=== PATIENT | female | born 1940 | race Caucasian/White ===

== ENCOUNTER 2019-02-08 09:46 | Inpatient (IN) ==
[2019-02-08] MEDS ORDERED: ASPIRIN PO ONE (10:06)
[2019-02-08 10:40] LABS: BASO# 0.03 X1000 (0.0-0.2); BASO% 0.5 % (0.0-0.8); EOS# 0.03 X1000 (0.0-0.7); EOS% 0.5 % (0.0-10.0); HEMATOCRIT 39.9 % (37.0-47.0); HEMOGLOBIN 12.9 g/dL (12.0-16.0); LYMPH# 0.77 X1000 (1.2-3.4); LYMPH% 12.1 % (20.5-51.1); MCH 27.7 PG (27-31); MCHC 32.3 g/dL (33-37); MCV 85.8 FL (81-99); MONO# 0.37 X1000 (0.11-0.59); MONO% 5.8 % (1.7-9.3); MPV 11.2 FL (7.4-10.4); NEUT# 5.19 X1000 (1.4-6.5); NEUT% 81.1 % (42.2-75.2); PLT 182 X1000 (130-400); RBC 4.65 XMIL (4.2-5.4); RDW 13.5 % (11.5-14.5); WBC 6.39 X1000 (4.8-10.8)
[2019-02-08 10:44] LABS: INR 1.02; PROTIME 13.5 Seconds (11.0-16.0)
[2019-02-08 10:45] LABS: PTT 26.2 Seconds (22.3-41.8)
--- NOTE | 2019-02-08 10:46 | Diag Imaging Result Doc PS360 ---
EXAM: CT HEAD W/O CONTRAST HISTORY: stroke like symptoms TECHNIQUE: CT head without contrast COMPARISON: None. FINDINGS: No parenchymal hemorrhage. No epidural or subdural hematoma. No subarachnoid hemorrhage. There is mild atrophy with mild chronic microvascular ischemic changes. No mass identified on this noncontrasted exam. No hydrocephalus. No sinus opacification. IMPRESSION: 1.No hemorrhage 2.Mild atrophy with mild chronic ischemic changes This exam was performed using automated exposure control, adjustment of mA or kV according to patient size, and/or use of iterative reconstruction technique. Electronically signed by Venancio Gilbert 02/08/2019 10:43 AM
--- NOTE | 2019-02-08 10:46 | Diag Imaging Result Doc PS360 ---
EXAM: CHEST-PORTABLE HISTORY: stroke like symptoms TECHNIQUE: Chest single view COMPARISON: 12/31/2018 FINDINGS: The lungs are well expanded. The heart is mildly prominent. The vessels are not distended. There are no infiltrates. No effusion identified. IMPRESSION: Mild cardiomegaly. Electronically signed by Venancio Gilbert 02/08/2019 10:44 AM
[2019-02-08 11:01] LABS: AGAP 11; ALB/GLOB RATIO 1.6; ALBUMIN 4.1 g/dL (3.5-5.0); ALKALINE PHOSPHATASE 115 U/L (32-104); BUN 17 mg/dL (8-22); CALCIUM 10.1 mg/dL (8.8-10.2); CHLORIDE 110 mmol/L (98-107); COSMO 289; CREATININE 0.6 mg/dL (0.5-0.9); ESTIMATED GFR > 60; GLUCOSE 141 mg/dL (70-104); GOT 17 U/L (10-30); GPT 11 U/L (10-36); POTASSIUM 4.4 mmol/L (3.5-5.1); SODIUM 143 mmol/L (136-145); TCO2 22 mmol/L (25-35); TOTAL BILIRUBIN 0.38 mg/dL (0.20-1.00); TOTAL PROTEIN 6.6 g/dL (6.3-8.3)
[2019-02-08] MEDS: NS 1,000 ML IV PRN (12:01)
[2019-02-08 12:22] LABS: URINE SOURCE CATH
[2019-02-08 12:26] LABS: BILIRUBIN URINE NEGATIVE (NEGATIVE); BLOOD URINE NEGATIVE (NEGATIVE); COLOR YELLOW; GLUCOSE URINE NEGATIVE (NEGATIVE); KETONE URINE NEGATIVE (NEGATIVE); LEUKOCYTES URINE SMALL (NEGATIVE); NITRITE URINE POSITIVE (NEGATIVE); PROTEIN URINE TRACE mg/dL (NEGATIVE); SP GRAVITY URINE 1.022; TURBIDITY URINE HAZY (CLEAR); UROBILINOGEN URINE NORMAL (NORMAL)
[2019-02-08 12:27] LABS: UR EPITHELIAL CELLS <10 /HPF (<10); URINE BACTERIA 4+ /HPF; URINE RBC <10 /HPF (<10)
[2019-02-08] MEDS ORDERED: ROCEPHIN 1 GM in NS 50 ML IV ONE (12:39)
--- NOTE | 2019-02-08 12:45 | PROVIDER DOCUMENTATION ---
This chart was entered by Carlota Pope Scribe, acting as scribe for Malcolm Yanez MD. HPI-Neurological Disorder - General Chief Complaint: Stroke-Like Symptoms Stated Complaint: STROKE LIKE SYMPTOMS Time Seen by Provider: 02/08/19 09:48 Source: patient, family () Allergies/Adverse Reactions: Patient Allergies Allergy/AdvReac Type Severity Reaction Status Date / Time No Known Allergies Allergy Verified 02/08/19 10:35 Home Medications: Home Medication List Medication Instructions Recorded Confirmed Last Taken Type Amlodipine Besylate/Benazepril 1 each PO DAILY 03/19/16 02/08/19 02/07/19 History [Amlodipine-Benazepril 5-40 mg] Levothyroxine Sodium [Synthroid] 175 mcg PO DAILY 03/19/16 02/08/19 02/07/19 History Sertraline [Zoloft] 50 mg PO DAILY 03/19/16 02/08/19 02/07/19 History Hydrocodone/Acetaminophen [[place] 1 each PO Q4-6H PRN PRN #20 tablet 01/27/17 02/08/19 02/08/19 Rx 10-325 Tablet] Aspirin 1 tab PO DAILY 02/08/19 02/08/19 02/07/19 History - History of Present Illness-Neuro Nature of Presenting Problem: 78 yowf presents t the ed with c/o right sided weakness with facial droop noted this morning at 0330am. pt sts when she went to bed last night around 2200 she was at her normal baseline and woke at 0330am to go to the restroom she noted weakness and dragging of her rt leg and foot. pt sts was able to get to the restroom by holding on to lobato and once she returned to the bedroom she could not get back in the bed so she laid on the floor to sleep till morning when her helped her up. pt called her son 1 hour before coming to ed and hold him her sx and he told her to come to ed due to sx and her speech not being normal. pt on exam shows some weakness but is happy and laughing with staff. pt is in no obvious distress and denies MTZ or pain at this time. Headache Location: denies: other (pt has no headache) Severity: reports: moderate Onset/Duration: reports: unsure (between 2200-0330am) Timing: reports: still present, constant Context: reports: impaired speech, paresthesia, facial droop Character of Altered Mental Status: reports: unchanged from baseline Any recent trauma/injury?: reports: none Character of Deficits: reports: new weakness, altered sensation, impaired speech , decreased ability to walk New weakness or altered sensation location:: reports: RUE, RLE Cognitive Baseline: alert, oriented x3 Gait Baseline: walks without assistance Associated Symptoms: reports: decreased ability to walk or stand, paresthesia, sleepy, slurred speech, weakness, other (ataxia). denies: headache, dizziness, confusion, chest pain, neck/back pain, fever/chills, loss of consciousness Similar Symptoms Previously?: No Recently seen or treated by another doctor?: No Review of Systems - Adult - REVIEW OF SYSTEMS - ADULT Constitutional: denies: chills, fever Eyes: reports: no symptoms reported Ears, Nose, Mouth & Throat: reports: no symptoms reported Cardiovascular: denies: chest pain, palpitations Respiratory: denies: cough, shortness of breath, wheezing Gastrointestinal: denies: diarrhea, nausea, vomiting Genitourinary: reports: no symptoms reported Musculoskeletal: denies: back pain, neck pain Integumentary: reports: no symptoms reported Neurological: reports: see HPI, ataxia, paresthesia, slurred speech. denies: dizziness/vertigo, headache/migraines, seizure, syncope, tremors Psychiatric: reports: no symptoms reported Endocrine: reports: no symptoms reported Hematologic/Lymphatic: reports: no symptoms reported Allergic/Immunologic: reports: no symptoms reported All Other Systems: Reviewed and Negative Past History - Adult - PAST MEDICAL HISTORY-ADULT Review of Records: reports: Old Records Reviewed, Nursing Assessment Review, Medications Reviewed, Social history reviewed & non-contributory. Major Childhood Illnesses: reports: denies history Cardiovascular: reports: HTN Respiratory: reports: denies history Gastrointestinal: reports: GERD Obstetrical/Gynecological: reports: denies history Genitourinary: reports: denies history Musculoskeletal: reports: denies history Neurological: reports: denies history Endocrine/Immune: reports: Diabetes, thyroid disorder Diabetes Type: Type 2 Other Conditions: reports: other cancer (skin) - PRIOR SURGERIES/PROCEDURES Surgical/Procedure History: reports: cholecystectomy, hysterectomy, joint replacement, other (aortic aneurysm repair) - IMMUNIZATION STATUS Childhood Immunizations: See Nurse Assessment Flu Vaccine: See Nurse Assessment - FAMILY HISTORY Family History: reviewed, not pertinent - SOCIAL HISTORY Smoking: quit greater than 1 year Substance Use: denies Alcohol Use Frequency: never Living Situation: family Physical Exam- Neurological - Physical Exam-Neuro Initial Vital Signs Reviewed: Yes General Appearance: alert, no apparent distress, obese Eye Exam: bilateral eye: normal inspection, PERRL HENMT: moist mucous membranes, other (flating of nasal grove rt side/no teeth) Head Injury: no evidence of injury Neck: full range of motion, carotid bruit (grade 3 rt side) Respiratory: chest non-tender, lungs clear, normal breath sounds Cardiovascular: normal peripheral pulses, regular rate, rhythm Abdominal Exam: normal bowel sounds, non tender, soft Lymphatic: no adenopathy Extremity: other (pt has dried feces on lower bilateral legs/weakness 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 II-XII, facial droop, motor weakness, sensory deficit Integumentary: normal color, normal turgor, warm/dry Psych/Mental Status: normal mood/affect, normal thought content, normal thought process, oriented x 3 - Glascow Coma Scale Best Eye Response: (4) open spontaneously Best Verbal Response: (5) oriented Best Motor Response: (6) obeys commands Total Glascow Score: 15 Progress - PLAN OF CARE/RESULTS Progress/Plan/Lab Results: Vital Signs - 8 hr 02/08/19 09:48 Temperature 98.3 F Pulse Rate 71 Respiratory Rate 18 Blood Pressure 181/73 O2 Sat by Pulse Oximetry 96 Laboratory Results - last 24 hr 02/08/19 02/08/19 02/08/19 10:16 10:16 10:16 WBC 6.39 RBC 4.65 Hgb 12.9 Hct 39.9 MCV 85.8 MCH 27.7 MCHC 32.3 L RDW Std Deviation 13.5 Plt Count 182 MPV 11.2 H Immature Gran % (Auto) 0.0 Neut % (Auto) 81.1 H Lymph % (Auto) 12.1 L [place] % (Auto) 5.8 Eos % (Auto) 0.5 Baso % (Auto) 0.5 Immature Gran # (Auto) 0.00 Neut # (Auto) 5.19 Lymph # (Auto) 0.77 L [place] # (Auto) 0.37 Eos # (Auto) 0.03 Baso # (Auto) 0.03 PT 13.5 INR 1.02 PTT (Actin FS) 26.2 Sodium 143 Potassium 4.4 Chloride 110 H Carbon Dioxide 22 L Anion Gap 11 BUN 17 Creatinine 0.6 Estimated GFR/1.73 m2 > 60 BUN/Creatinine Ratio 28 Glucose 141 H POC Glucose Calculated Osmolality 289 Calcium 10.1 Total Bilirubin 0.38 AST 17 ALT 11 Alkaline Phosphatase 115 H Troponin T Total Protein 6.6 Albumin 4.1 Globulin 2.5 Albumin/Globulin Ratio 1.6 Urine Source Urine Color Urine Turbidity Urine pH Ur Specific [place] Urine Protein Ur Glucose (Stick) Ur Ketones (Stick) Urine Blood Urine Nitrite Urine Bilirubin Urobilinogen Dipstick Urine Leukocytes Urine WBC (Auto) Urine RBC (Auto) U Epithel Cells (Auto) Urine Bacteria (Auto) 02/08/19 02/08/19 02/08/19 10:16 10:17 12:15 WBC RBC Hgb Hct MCV MCH MCHC RDW Std Deviation Plt Count MPV Immature Gran % (Auto) Neut % (Auto) Lymph % (Auto) [place] % (Auto) Eos % (Auto) Baso % (Auto) Immature Gran # (Auto) Neut # (Auto) Lymph # (Auto) [place] # (Auto) Eos # (Auto) Baso # (Auto) PT INR PTT (Actin FS) Sodium Potassium Chloride Carbon Dioxide Anion Gap BUN Creatinine Estimated GFR/1.73 m2 BUN/Creatinine Ratio Glucose POC Glucose 145 H Calculated Osmolality Calcium Total Bilirubin AST ALT Alkaline Phosphatase Troponin T < 0.010 Total Protein Albumin Globulin Albumin/Globulin Ratio Urine Source CATH Urine Color YELLOW Urine Turbidity HAZY Urine pH 6.0 Ur Specific [place] 1.022 Urine Protein TRACE A Ur Glucose (Stick) NEGATIVE Ur Ketones (Stick) NEGATIVE Urine Blood NEGATIVE Urine Nitrite POSITIVE A Urine Bilirubin NEGATIVE Urobilinogen Dipstick NORMAL Urine Leukocytes SMALL A Urine WBC (Auto) 10-20 A Urine RBC (Auto) <10 U Epithel Cells (Auto) <10 Urine Bacteria (Auto) 4+ Orders Category Date Time Status Cardiac Monitoring DIRECTED Care 02/08/19 10:05 Active Finger Stick Blood Sugar (ED) DIRECTED Care 02/08/19 10:05 Completed Misc. NRSG Communication Order DIRECTED Care 02/08/19 10:05 Active Saline Loc NOW Care 02/08/19 10:05 Active CHEST-PORTABLE [RAD] Stat Exams 02/08/19 10:[address] HEAD W/O CONTRAST [CT] Stat Exams 02/08/19 10:05 Completed CBC WITH ELECTRONIC DIFF [HEME] Stat Lab 02/08/19 10:16 Completed COMPREHENSIVE METABOLIC PANEL [CHEM] Stat Lab 02/08/19 10:16 Completed PROTIME WITH INR [COAG] Stat Lab 02/08/19 10:16 Completed PTT [COAG] Stat Lab 02/08/19 10:16 Completed TROPONIN T Stat Lab 02/08/19 10:16 Completed URINALYSIS W/POSS RFLX CULT [URINALYSIS] Stat Lab 02/08/19 12:15 Completed URINE CULTURE [RM] Routine Lab 02/08/19 12:34 Received URINE DRUG SCREEN Stat Lab 02/08/19 12:15 Received 0.9% Sodium Chloride Inj [Ns] 1,000 ml Med 02/08/19 10:05 Active IV 100 mls/hr Aspirin Med 02/08/19 10:06 Discontinued 325 mg PO NOW ONE EKG [EKG] Stat Ther 02/08/19 10:05 Ordered Transfer/Admit Order [TRANSFER] Routine Transfer 02/08/19 12:32 Ordered Result Diagrams: 02/08/19 10:16 02/08/19 10:16 - REASSESSMENT Reassessment #1 Time Reassessed: 11:01 Status: unchanged - EKG 1 Time of EKG reading by physician:: 10:03 EKG Read and Signed by:: Malcolm Yanez EKG Interpretation (*Must complete 3 of following elements*): Normal Rate: 68 Rhythm: nsr [place]: normal QRS: normal DC Interval: normal ST Wave: normal - XRAY 1 XRAY: Bilateral XRAY Study: Chest Impression: See EMR Report (EXAM: CHEST-PORTABLE HISTORY: stroke like symptoms TECHNIQUE: Chest single view COMPARISON: 12/31/2018 FINDINGS: The lungs are well expanded. The heart is mildly prominent. The vessels are not distended. There are no infiltrates. No effusion identified. IMPRESSION: Mild cardiomegaly. Electronically signed by Venancio Gilbert 02/08/2019 10:44 AM 02/08/19 1044 Interpreting Physician: Venancio Gilbert MD Dictated Date/Time: 02/08/19 1044 cc: Malcolm Yanez MD; Bhavik Guan MD) - CT/MRI 1 CT Study: Head Impression: See EMR Report (EXAM: CT HEAD W/O CONTRAST HISTORY: stroke like symptoms TECHNIQUE: CT head without contrast COMPARISON: None. FINDINGS: No parenchymal hemorrhage. No epidural or subdural hematoma. No subarachnoid hemorrhage. There is mild atrophy with mild chronic microvascular ischemic changes. No mass identified on this noncontrasted exam. No hydrocephalus. No sinus opacification. IMPRESSION: 1.No hemorrhage 2.Mild atrophy with mild chronic ischemic changes This exam was performed using automated exposure control, adjustment of mA or kV according to patient size, and/or use of iterative reconstruction technique. Electronically signed by Venancio Gilbert 01/12 10:43 AM 02/08/19 1043 Interpreting Physician: Venancio Gilbert MD Dictated Date/Time: 02/08/19 1042 cc: Malcolm Yanez MD; Bhavik Guan MD) - CONSULTS/PCP/HOSPITALIST Notification #1 *Consult/PCP/Hospitalist*: hospitalist dr ricks Time Discussed: 12:26 Consult Disposition: Admit Departure - Departure Date of Disposition Decision: 02/08/19 Time of Disposition Decision: 10:00 DIAGNOSIS: UTI (urinary tract infection) CVA (cerebral vascular accident) Qualifiers: CVA mechanism: unspecified Qualified Code(s): I63.9 - Cerebral infarction, unspecified Disposition: ADMITTED INPATIENT Certified Medical Emergency: Emergent Condition: Good Referrals and Follow-Ups: Bhavik Guan MD [Primary Care Provider] - - Critical Care Note This patient required my direct & personal management of CC.: Yes Total Time (mins): 38 Critical Care Statement: This patient required my direct personal management to treat or rule out processes, the absence of which, could potentiallly result in sudden, clinically significant life or limb threatening deterioration. Attestation - Physician/ TITUS Attestation Patient care was provided by Advanced Practice Provider:: No The physician spent face to face time with patient:: Yes Advanced Practice Provider documentation review:: Supervising physician onsite and consulted in the evaluation and care of this patient. The physician did have a face to face encounter with the patient. - NIH Stroke Scale Level of Consciousness: 0-Alert LOC Questions (ask month and age): 0-Answers Both Correctly LOC Commands (ask to open & close eyes;make a fist, let go): 0-Obeys Both Correctly Best Gaze (horizontal eye movement): 0-Normal Visual (use finger movement, counting or visual threat): 0-No Visual Loss Facial Palsy (show teeth or raise eyebrows & close eyes tght: 1-Minor Paralysis Motor Function-left arm: 0-Normal Motor Function-right arm: 1-Drift Motor Function-left le-Normal Motor Function-right le-Some Effort Against [place] Sensory(pin prick to face,arms,trunk,legs-compare side/side): 0-No Ataxia Best Language(name item/read sentence.Ex-[place]): 0-No Aphasia Dysarthria(Pt read words or say words Ex.Mama,Tip-Top,Thanks: 1-Mild-Mod Slurring Words Extinction and Inattention: 0-Normal NIH Total Score: 5 Stroke tPA Guidelines - Inclusion Criteria for IV tPA 18 years old or older: Yes Ischemic stroke with measurable deficit: Yes Onset <3 hours ago *OR* 3-4.5 hours ago: No This chart was documented by the indicated scribe, (Carlota Pope Scribe) and accurately reflects the services I performed and decisions made by me, Malcolm Yanez MD, as attested by the provider's signature.
[2019-02-08 13:09] LABS: UR AMPHETAMINES QUAL NONE DETECTED (NONE DETECT); UR BARBITUATES QUAL NONE DETECTED (NONE DETECT); UR BENZODIAZEPIN QUAL NONE DETECTED (NONE DETECT); UR CANNABINOIDS QUAL NONE DETECTED (NONE DETECT); UR COCAINE QUAL NONE DETECTED (NONE DETECT); UR METHADONE QUAL NONE DETECTED (NONE DETECT); UR OPIATES QUAL PRESUMPTIVE POSITIVE (NONE DETECT); UR OXYCODONE QUAL NONE DETECTED (NONE DETECT); UR PCP QUAL NONE DETECTED (NONE DETECT)
--- NOTE | 2019-02-08 13:34 | HISTORY AND PHYSICAL ---
PRIMARY CARE DOCTOR: Dr. Bhavik Guan. HISTORY OF PRESENT ILLNESS: A 78-year-old. She woke up this morning. She could tell some weakness on her right side, right arm, right leg. She had a little difficulty going to the bathroom, was able to get herself back into bed. She noticed some drooping in the right side of her face, and her tongue felt thick, slurring of her words, but no trouble with the thought process. No trouble formulating her words or knowing what she wanted to say. No trouble with her swallow. She denied any fever or chills. No recent head trauma. No symptoms like this that she has noted previously. She had no presyncope or syncopal episodes. She lives with her . ALLERGIES: No known drug allergies. PAST MEDICAL HISTORY: 1. Hypertension. 2. Hypothyroidism. She is on thyroid supplement. 3. Diet-controlled diabetes for many years. 4. History of DVT in the right leg. This was back in the early part of 2016, treated with medication. PAST SURGICAL HISTORY: She has had cataract surgery, abdominal aortic aneurysm repair, hysterectomy, gastric bypass, cholecystectomy, and tubal ligation in the past. REVIEW OF SYSTEMS: Constitutional: She does not report any change in appetite or weight loss or gain. HEENT: No change in vision or hearing acuity. Her right face felt like it was drooping, the right side of her mouth, and also trouble with a thick tongue. Respiratory: No increased work of breathing or dyspnea. Cardiovascular: No chest pain or tachy palpitation. No history of atrial fibrillation in the past. GI/: No gross hematochezia. No dyspepsia. No gross hematuria or dysuria. Endocrinologic/Hematologic: No significant history. PHYSICAL EXAMINATION: Vital Signs: Temperature 98.3 degrees, pulse 70, respirations 18, blood pressure 180/73. Weight 194 pounds. Height 5 feet 4 inches. HEENT: Pupils are equal and round. Lungs: Clear in all lung saha. Cardiovascular: Regular rhythm and rate without murmur or S3. Abdomen: Soft. Skin: Warm and dry. Skin: Warm and dry. Neurologic: She is slightly weaker. I would give her a 4/5 on her dorsal and plantar flexion. She can lift her leg off the bed on the right side, but not as forcefully as on the left. 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 She has ulnar drift on the right hand. Shoulder shrug seems to be equal. Her face is almost symmetrical, but you can tell slight droop. Tongue appeared to be basically midline. She had no complaints of her vision. IMAGING AND LABORATORY DATA: White count 6390, hematocrit 39, platelet count 182,000. Sodium 143, potassium 4.4, chloride 110, BUN 17, creatinine 0.6, blood sugar 141, calcium is 10.1. AST 17, ALT 11, alkaline phosphatase 115, albumin is 4.1. ProTime 13.5, INR is 1.02. Urinalysis: She has 10 to 20 white blood cells, 4+ bacteria noted. Head CT: No hemorrhage, mild atrophy, mild chronic ischemic changes. Chest x-ray: Mild cardiomegaly. Lung saha are clear and well expanded. Vessels were not distended. ASSESSMENT AND PLAN: 1. It appears that she has had a left hemisphere ischemic event. It appears to be reversing. On exam, I did hear a mild carotid bruit on the left, and none on the right. We will check a noninvasive carotid on her, and an echocardiogram. Will also get an MRI of her head tomorrow and make sure there is no embolic phenomenon. We will put her on a monitor, make sure she is not having underlying atrial fibrillation or arrhythmia. She was on aspirin before. Will add Plavix 75 mg, give her one now and then every day. 2. Hypertension. Blood pressure appears under good control. Now is not the time to drop her blood pressure too much, but I noted she had 181/73, so will tolerate a little bit of higher pressure for right now, and continue her home medicines. She was on amlodipine combination with benazepril 5/40 one a day. 3. History of hypothyroidism. She is on Synthroid 175 mcg by mouth daily. We will check a T4 and TSH. Of course, will check B12 and folate on her as well. 4. She takes Zoloft 50 mg, and we will continue that. Will ask Neurology to see tomorrow, and will give her normal saline and will run it at 85 mL an hour. Note, she had sediment in the urine, but she is asymptomatic, so asymptomatic bacteriuria. We will go ahead and give her Rocephin empirically 1 gram now and then 1 tomorrow. cc: Rey Clark MD
[2019-02-08] MEDS ORDERED: ZOFRAN IV PRN (13:43)
[2019-02-08] MEDS ORDERED: TYLENOL PO PRN (13:43)
[2019-02-08 14:46] LABS: FREE T4 1.44 ng/dL (0.93-1.70); TSH 0.23 uIUmL (0.27-4.20)
[2019-02-08] MEDS: PLAVIX PO SCH (15:34)
[2019-02-08] MEDS: ROCEPHIN 1 GM in NS 50 ML IV SCH (15:34)
--- NOTE | 2019-02-08 17:31 | EKG Report ---
Test Performed on : 02/08/2019 10:03:34 AM Test Reason : Stroke like symptoms Blood Pressure : / mmHG Vent. Rate : 068 BPM Atrial Rate : 068 BPM P-R Int : 170 ms QRS Dur : 088 ms QT Int : 402 ms P-R-T Axes : 064 001 060 degrees QTc Int : 427 ms Normal sinus rhythm. Normal ECG When compared with ECG of 31-DEC-2018 20:31, (Unconfirmed) premature ventricular complexes. are no longer present Unconfirmed Result
[2019-02-09] MEDS: NS 1,000 ML IV PRN (00:56)
[2019-02-09] MEDS: SYNTHROID PO SCH ×2 (05:51→06:22)
[2019-02-09 07:30] LABS: BASO# 0.03 X1000 (0.0-0.2); BASO% 0.6 % (0.0-0.8); EOS# 0.16 X1000 (0.0-0.7); EOS% 2.9 % (0.0-10.0); HEMATOCRIT 36.6 % (37.0-47.0); HEMOGLOBIN 11.6 g/dL (12.0-16.0); LYMPH# 1.22 X1000 (1.2-3.4); LYMPH% 22.4 % (20.5-51.1); MCH 27.7 PG (27-31); MCHC 31.7 g/dL (33-37); MCV 87.4 FL (81-99); MONO# 0.33 X1000 (0.11-0.59); MONO% 6.1 % (1.7-9.3); MPV 11.1 FL (7.4-10.4); NEUT# 3.71 X1000 (1.4-6.5); PLT 172 X1000 (130-400); RBC 4.19 XMIL (4.2-5.4); RDW 13.6 % (11.5-14.5); WBC 5.45 X1000 (4.8-10.8)
[2019-02-09 07:53] LABS: AGAP 9; BUN 10 mg/dL (8-22); CALCIUM 8.7 mg/dL (8.8-10.2); CHLORIDE 112 mmol/L (98-107); COSMO 285; CREATININE 0.5 mg/dL (0.5-0.9); ESTIMATED GFR > 60; GLUCOSE 108 mg/dL (70-104); POTASSIUM 3.7 mmol/L (3.5-5.1); SODIUM 143 mmol/L (136-145); TCO2 22 mmol/L (25-35)
[2019-02-09] MEDS: LOTENSIN PO SCH (09:24)
[2019-02-09] MEDS: ZOLOFT PO SCH (09:24)
[2019-02-09] MEDS: PLAVIX PO SCH (09:24)
[2019-02-09] MEDS: NORVASC PO SCH (09:24)
[2019-02-09] MEDS: ASPIRIN PO SCH (09:24)
--- NOTE | 2019-02-09 10:00 | PROGRESS NOTE ---
DATE: 02/09/2019 SUBJECTIVE: Ms. Blanchard says her arm seems to be a little stronger. Her speech is about the same. Still feels like she is slurring her words and the tongue feels thick. Mild facial asymmetry. Tongue is midline. OBJECTIVE: Temperature 98.1 degrees, pulse 62, respirations 20, blood pressure 171/70.HEENT: Pupils are equal and round. Lungs: Are clear in all lung saha. Anterolateral. Cardiovascular: Regular rate without murmur or S3. Abdomen: Soft. Skin: Is warm and dry. LABORATORY: Urine output is 900 mL. PLAN: To do a carotid Doppler, bilateral carotid Doppler, echocardiogram with Doppler to get an MRI of her head. I will have speech therapy and physical therapy evaluate. Her lab was unremarkable. White count 5450, hematocrit 36, platelet count 172,000. Chemistries look good. Sodium 143, potassium 3.7, chloride 112, BUN 10, creatinine 0.5 blood sugar 145-108, so continue to follow sugars. cc: Rey Clark MD
--- NOTE | 2019-02-09 12:13 | Diag Imaging Result Doc PS360 ---
MRI BRAIN W/WO CONTRAST - 02/09/2019 INDICATION: stroke COMPARISON: Head CT 02/08/2019 FINDINGS: There is a small area of restricted diffusion in the left periventricular cerebral white matter consistent with a recent infarction. In addition, there is rather extensive periventricular and deep cerebral white matter hyperintensity compatible with microvascular ischemia. There is mild atrophy. No intracranial mass or hemorrhage. There is no abnormal contrast enhancement. IMPRESSION: 1. Recent infarction in the left periventricular cerebral white matter compatible with microvascular disease. 2. Moderate chronic microvascular disease throughout the cerebral white matter. Electronically signed by Joseph Pleitez 02/09/2019 12:10 PM
[2019-02-09] MEDS: ROCEPHIN 1 GM in NS 50 ML IV SCH (15:56)
[2019-02-09] MEDS: NORCO-10 PO PRN ×2 (16:18→22:32)
--- NOTE | 2019-02-09 20:36 | ECHO REPORT ---
ORDER DATE: 02/09/2019 INTERPRETING PHYSICIAN: Dr. Joseph Flores. ECHOCARDIOGRAPHIC MEASUREMENTS: 1. Interventricular septum: 1.4 cm. 2. Left ventricular posterior wall: 1.2 cm. 3. Diastolic diameter: 4.7 cm. 4. Left atrium: 4.6 cm. 5. Aorta: 3.8 cm. SUMMARY OF THE 2-DIMENSIONAL IMAGIN. Mitral valve leaflets are normal. There is moderate to severe mitral annular calcification. There is mild left atrial enlargement. 2. Tricuspid valve is normal. 3. Aortic valve leaflets are calcified, trileaflet. 4. Pulmonic valve is normal. 5. Normal left ventricular cavity size. Concentric left ventricular hypertrophy. Estimated ejection fraction of 60%. There is diastolic dysfunction. 6. There is mild tricuspid regurgitation. Peak velocity across the tricuspid valve is 2.7 m/sec. 7. Pulmonary artery systolic pressure of 38 mmHg. 8. Peak velocity across the aortic valve is 2.8 m/sec, mean gradient of 16 mmHg. 9. Aortic valve area of 1.2 cm2. There is mild aortic stenosis. There is no aortic regurgitation. 10. There is no obvious pericardial effusion. 11. There is mild mitral regurgitation. cc: MD Lauren Way CRNP
[2019-02-10] MEDS: SYNTHROID PO SCH (06:29)
[2019-02-10] MEDS: NORCO-10 PO PRN ×2 (09:19→20:06)
[2019-02-10] MEDS: ZOLOFT PO SCH (09:19)
[2019-02-10] MEDS: ASPIRIN PO SCH (09:20)
[2019-02-10] MEDS: NORVASC PO SCH (09:20)
[2019-02-10] MEDS: PLAVIX PO SCH (09:20)
[2019-02-10] MEDS: LOTENSIN PO SCH (09:20)
[2019-02-10] MEDS: ROCEPHIN 1 GM in NS 50 ML IV SCH (13:38)
--- NOTE | 2019-02-10 15:49 | PROGRESS NOTE ---
DATE: 02/10/2019 SUBJECTIVE: She is sitting up in bed. Seems much more awake, alert, oriented, at least comparatively by descriptors. OBJECTIVE: Vital Signs: Blood pressure is 138/59, heart rate of 56, respiratory rate of 20, temperature 97.2 degrees. Cardiovascular: Regular rate and rhythm. Pulmonary: Bilateral breath sounds. Clear to auscultation. GI: Soft, nontender, nondistended. Bowel sounds are positive. Neurologic exam: Nonfocal. No pronator drift. She had a slight right facial droop. PROBLEM LIST: 1. Acute ischemic cerebrovascular accident. We will continue to monitor. I do think she has an acute ischemic cerebrovascular accident based on her MRI in the left temporal layer. We will continue aspirin and Plavix. I agree with that. We will add Lipitor. Will allow for permissive hypertension. Carotid and echo are produced; we just do not have the results. We will continue with physical therapy, occupational therapy and see how she does. 2. Hypothyroidism appears to be compensated. 3. Escherichia coli urinary tract infection; it is pansensitive. She is on Omnicef, Rocephin; will discharge on Keflex or something of that nature. DISPOSITION: I anticipate if she is stable tomorrow, we should be able to get her home. cc: Yasmani Hebert MD
--- NOTE | 2019-02-10 17:00 | Diag Imaging Result Doc PS360 ---
CT ANGIOGRAM HEAD - 02/10/2019 INDICATION: cva TECHNIQUE: Axial CT images were obtained after administering intravenous contrast. Three-dimensional angiographic images were generated. COMPARISON: Head CT 02/08/2019 FINDINGS: Extracranial vessels all appear normal. Normal vertebral and basilar arteries. There is dense calcification of the carotid siphons bilaterally. This results in mild stenosis on the right side, of about 30% narrowing. There is no significant stenosis on the left side. The anterior and middle cerebral arteries are patent bilaterally. No significant plaque buildup. No stenosis or aneurysm here. The posterior cerebral arteries are normal bilaterally. Smaller order arteries are all grossly normal as well. IMPRESSION: Atherosclerotic disease of the carotid siphons bilaterally resulting in some mild stenosis on the right side. This exam was performed using automated exposure control, adjustment of mA or kV according to patient size, and/or use of iterative reconstruction technique Electronically signed by Joseph Pleitez 02/10/2019 4:58 PM
[2019-02-10] MEDS ORDERED: LIPITOR PO SCH (21:00)
[2019-02-11] MEDS: SYNTHROID PO SCH (06:13)
[2019-02-11 07:36] VITALS: BP 178/57
[2019-02-11 08:09] LABS: BASO# 0.02 X1000 (0.0-0.2); BASO% 0.4 % (0.0-0.8); EOS# 0.13 X1000 (0.0-0.7); EOS% 2.7 % (0.0-10.0); HEMATOCRIT 38.5 % (37.0-47.0); HEMOGLOBIN 11.8 g/dL (12.0-16.0); LYMPH# 1.02 X1000 (1.2-3.4); LYMPH% 20.9 % (20.5-51.1); MCH 27.3 PG (27-31); MCHC 30.6 g/dL (33-37); MCV 89.1 FL (81-99); MONO# 0.33 X1000 (0.11-0.59); MONO% 6.8 % (1.7-9.3); NEUT# 3.38 X1000 (1.4-6.5); NEUT% 69.2 % (42.2-75.2); PLT 167 X1000 (130-400); RBC 4.32 XMIL (4.2-5.4); RDW 13.7 % (11.5-14.5); WBC 4.88 X1000 (4.8-10.8)
[2019-02-11 08:30] LABS: AGAP 10; BUN 15 mg/dL (8-22); CALCIUM 9.4 mg/dL (8.8-10.2); CHLORIDE 108 mmol/L (98-107); COSMO 289; CREATININE 0.7 mg/dL (0.5-0.9); ESTIMATED GFR > 60; GLUCOSE 117 mg/dL (70-104); SODIUM 144 mmol/L (136-145); TCO2 26 mmol/L (25-35)
[2019-02-11] MEDS: PLAVIX PO SCH (08:31)
[2019-02-11] MEDS: ZOLOFT PO SCH (08:31)
[2019-02-11] MEDS: ASPIRIN PO SCH (08:31)
--- NOTE | 2019-02-12 02:42 | Carotid Study ---
DATE: 02/09/2019 REFERRING PHYSICIAN: JONNY Berry. READING PHYSICIAN: Kyle Gayle MD. INSEAM TRIMMING MACHINE OPERATOR: Elaine Harrell RVT. INDICATION: Stroke versus TIA. FINDINGS: There is irregular heterogeneous plaque near the right carotid bulb, left distal common carotid artery, and left mid internal carotid artery; however, no elevated velocities or turbulent flow patterns are observed. There is inferior vertebral flow bilaterally. INTERPRETATION: Mild atherosclerotic disease as described above, which is not hemodynamically significant. cc: MD Lauren Hartley CRNP
--- NOTE | 2019-02-12 11:00 | DISCHARGE SUMMARY ---
ADMISSION DATE: 02/10/2019 DISCHARGE DATE: 02/11/2019 DISCHARGE DIAGNOSES: 1. Acute ischemic cerebrovascular accident. She has a left periventricular stroke. 2. Hypertension. 3. Hypothyroidism. 4. Dyslipidemia. 5. Escherichia coli urinary tract infection. CONSULTATIONS: None. HISTORY: Briefly, this is a 78-year-old female. She had improvement. MRI was obtained. She had already been on aspirin so we put her on Plavix. We allowed permissive hypertension. Her thyroid levels were stable. Her MRI did end up showing a left periventricular cerebral white matter change diffusion weight restriction consistent with an acute ischemic CVA. Echo was unremarkable except for some LVH, and some diastolic dysfunction, and mild aortic stenosis. Carotid Doppler did not show any significant blockage that I am aware of, but I do not have the final report yet so that will need to be followed up by Dr. Guan. CT angiogram showed mild stenosis on the right side, 30% narrowing, but nothing major, so she was managed medically. Her symptoms which were weakness and numbness pretty much resolved prior to discharge. He decided to discharge her. Amlodipine, we will hold for 1 week, and then I will allow her to resume. Aspirin 81 daily, Synthroid 175 daily, Zoloft 50 daily, Lipitor 40 daily. Keflex 100 b.i.d. for 5 days, Mcgregor p.r.n., and Plavix [address] Follow up with [address]. Guan. I think she has an appointment. Follow up with Dr. Guan, and follow closely. TIME SPENT: 32 minute discharge. cc: Yasmani Hebert MD
== END 2019-02-11 13:57 | disposition home health service (06) | DRG 65 ==
LOC: 3N 09:46 → ED 09:46 → SUATTDRO 12:50
PROVIDERS: ATTEND Internal Medicine